=== PATIENT | male | born 1975 | race Caucasian/White ===

== ENCOUNTER 2022-02-08 10:11 | Outpatient (CLI) | payer OTHER, SELFPAY ==
--- NOTE | 2022-02-08 11:30 | NEURO_ITS ---
Impression: # Complains of difficulty in moving right 5th finger. # Right ulnar neuropathy across the elbow. # Needle/EMG exam mildly neurogenic in right ADM. # Clinical correlation recommended. Nerve Conduction Studies Anti Sensory Summary Table Stim Site NR Peak (ms) P-T Amp (?V) Site1 Site2 Delta-P (ms) Dist (cm) Barry (m/s) Right Median Anti Sensory (2-3nd Digit) Wrist 3.2 33.8 Wrist 2-3nd Digit 3.2 14.0 44 Wrist 3.2 26.1 Wrist 2-3nd Digit 3.2 14.0 44 Right Radial Anti Sensory (Base 1st Digit) Wrist 1.9 14.1 Wrist Base 1st Digit 1.9 0.0 Right Ulnar Anti Sensory (5th Digit) Wrist 2.6 13.2 Wrist 5th Digit 2.6 14.0 54 Motor Summary Table Stim Site NR Onset (ms) O-P Amp (mV) Site1 Site2 Delta-0 (ms) Dist (cm) Barry (m/s) Right Median Motor (Abd Poll Brev) Wrist 3.8 3.7 Elbow Wrist 5.3 30.0 57 Elbow 9.1 2.8 Right Ulnar Motor (Abd Dig Minimi) Wrist 2.3 5.5 A Elbow Wrist 6.8 33.0 49 A Elbow 9.1 4.8 B Elbow Wrist 4.2 22.0 52 B Elbow 6.5 4.8 F Wave Studies NR F-Lat (ms) L-R F-Lat (ms) Right Median (Mrkrs) (Abd Poll Brev) 31.60 Right Ulnar (Mrkrs) (Abd Dig Min) 31.56 EMG Side Muscle Nerve Root Ins Act Fibs Amp Dur Recrt Comment Right 1stDorInt Ulnar C8-T1 Nml Nml Nml Nml Nml Right Ext Indicis Radial (Post Int) C7-8 Nml Nml Nml Nml Nml Right Ext Digitorum Radial (Post Int) C7-8 Nml Nml Nml Nml Nml Right BrachioRad Radial C5-6 Nml Nml Nml Nml Nml Right PronatorTeres Median C6-7 Nml Nml Nml Nml Nml Right Abd Poll Brev Median C8-T1 Nml Nml Nml Nml Nml Right ABD Dig Min Ulnar C8-T1 Nml Nml Decr >12ms Reduced MTDD
== END 2022-02-08 10:12 | disposition home or self-care (01) ==
LOC: ANHNEURO 10:14
DX: M20.091 Other deformity of right finger(s) (principal); G56.21 Lesion of ulnar nerve, right upper limb
CPT/HCPCS: 95886; 95909